=== PATIENT | female | born 1980 | race Caucasian/White ===

== ENCOUNTER 2016-08-31 10:51 | Day surgery (SDC) | payer OTHER ==
[~2016-08-31] VITALS: Ht 154.9 cm; Wt 91.0 kg
--- NOTE | 2016-08-31 10:40 | PCM.HPANE ---
Patient Data Surgeon Admitting Provider: Attending Provider:Clint Rodriguez MD Primary Care Physician:Ezra Patino DO Other Provider:Jess Arredondoingham Anesthesia Reason for Visit Family Hx Of Colon Cancer, Dysphagia Ht/WT & BMI Body Mass Index Allergies Coded Allergies: azithromycin (Verified Allergy, Unknown, 08/30/16) Diabetes History Hx Diabetes?: No Medications Reported Medications Omeprazole 20 Mg Capsule.dr20 Mg PO DAILY Ref 0 08/30/16 diphenhydrAMINE HCl (Benadryl)25 Mg [id number] Mg PO HS PRN Insomnia Ref 0 08/30/16 Acetaminophen/Diphenhydramine (Tylenol Pm Ex-Strength Caplet)500 Mg-25 Mg Tablet2 Each PO HS PRN Insomnia 08/30/16 Lorazepam (Ativan)0.5 Mg Tablet0.5 Mg PO BID PRN For Anxiety Ref 0 08/30/16 Discontinued Reported Medications Trazodone 50 Mg [id number] Mg PO HS Ref 0 08/30/16 Discontinued Scripts Lorazepam (Ativan)2 Mg Tablet2 Mg PO TID PRN For Anxiety #20 TABLET Ref 0 Prov:Edin Caballero 01/19/15 History History of ENT Problems?: No Hx of Heart Problems?: No Cardiovascular History: Denies:: Congestive Heart Failure Hypertension Hx of Respiratory Problem?: No Respiratory History: Denies:: Tuberculosis Hx Neurologic Problems?: Yes (Severe anxiety) Hx of GI Problems?: Yes Hx Surgeries?: No Hx Diabetes: No Hx Alcohol Use: NoHx Substance Use: No Smoking Status: Never Smoker Have You Smoked inLast 12 mo: No Stop/Bang S-Snoring: Do You Snore Loudly: No T-Tired: feel tired, fatigued: No O-Obsered: Observed not breath: No P-Blood Pressure: treated: No B- Body Mass Index > 35 kg/m2: Yes A- Age over 50: No N- Neck Large Circumference: No G- Gender Male: No GERARDO Risk Assessment: Low Risk, <3 Yes Risk Assessment Category Category 1A: Patient has history of documented sleep apnea, and HAS NOT received any narcotic, sedative or anesthesia administration during this stay. Category 1B: Patient has history of documented sleep apnea, and HAS received any narcotic , sedative or anesthesia administration during this stay Category 2: Patient has SUSPECTED Obstructive Sleep Apnea, and HAS received any narcotic , sedative or anesthesia administration during this stay. Category 3: Patient has SUSPECTED Obstructive Sleep Apnea and HAS NOT received narcotic, sedative or anesthesia administration during this stay. Category 4: Outpatient in Procedural Areas with known sleep apnea or who screen positive for High Risk via the STOP/BANG questionnaire. Exam Exam General Appearance: Alert, Oriented X3, Cooperative, No Acute Distress HEENT/AIRWAY: MP 2 Lungs: Clear to Auscultation, Normal Air Movement Heart: Exam Unremarkable, Regular Rate/Rhythm, No Murmurs/Rubs/Gallops Plan Impression Patient chart reviewed, patient interviewed and anesthestic plan with risks, benefits, and alternatives discussed, and informed consent obtained. ASA Physical Status: ASA2 Mod Systemic Disease Anesthetic Plan: MAC Bene/Risks/Altern/Consents: Yes HP Complete Prior to Induction: Yes Raymundo Henry MD Aug 31, 2016 10:40
[~2016-08-31 10:51] MED LIST: ACET-2605 PO; DIPH25CA6 PO; LORA-302 PO; Lactated Ringer's 1,000 ML IV ONE; OMEP20CA11 PO; TRAZ-115 PO
[2016-08-31] MEDS ORDERED: fentaNYL-PF 50 mCg/mL 2 mL Inj ONE (10:52)
[2016-08-31] MEDS ORDERED: Propofol 10,000 mCg/mL 20 mL Inj ONE (10:52)
[2016-08-31 11:20] VITALS: BP 131/91; PULSE 111; RESP 20; O2SAT 96
[2016-08-31] MEDS ORDERED: Lactated Ringer's 1,000 ML IV SCH (13:25)
[2016-08-31] MEDS ORDERED: Ondansetron 2 mg/mL 2 mL Inj IVPUSH PRN (13:25)
[2016-08-31] MEDS ORDERED: MetoCLOpramide 5 mg/mL 2 mL Inj IVPUSH PRN (13:25)
[2016-08-31 13:48] VITALS: BP 104/70; PULSE 97; RESP 14; O2SAT 98
[2016-08-31 14:00] VITALS: BP 118/73; PULSE 94; RESP 14; O2SAT 98
--- NOTE | 2016-08-31 14:00 | PCM.ANEP1 ---
Post Anesthesia Phase 1 PACU Phase 1 Assessment Vital Signs Vital Signs Date Time Temp Pulse Resp B/P Pulse Ox O2 Delivery O2 Flow Rate FiO2 08/31/16 13:48 36.2 97 14 104/70 98 Room Air 08/31/16 11:20 37.4 111 20 131/91 96 Room Air Anesthetic Administered: MAC Level of Alertness: Awake, talking AGUILAR's with Equal Strength: Yes Pain: No Nausea or Vomiting: No Oxygen Delivery: Room Air Lungs: Clear to Auscultation, Normal Air Movement Dermatome Level: Full Sensation Raymundo Henry MD Aug 31, 2016 13:59
[2016-08-31 14:05] VITALS: BP 115/70; PULSE 92; RESP 14; O2SAT 98
--- NOTE | 2016-08-31 14:18 | PCM.ANEP2 ---
Post Anesthesia Evaluation ASA/CMS Post Anesthesia VS in Patient's Normal Range?: Yes Resp Stable; Airway Patent?: Yes CV Function & Hydration Stable: Yes Mental Status Recovered?: Yes Pain control Satisfactory?: Yes N/V Control Satisfactory?: Yes Raymundo Henry MD Aug 31, 2016 14:18
--- NOTE | 2016-08-31 14:30 | ENDO ---
[address] [address] ENDOSCOPY PROCEDURE PATIENT: THAIS ARMENTA : 1980 MR#: [id number] ADMIT: 08/31/2016 JOB ID: [id number] DATE: 08/31/2016 PRIMARY PROVIDER: Ezra Patino DO (R) PROCEDURE: 1. Esophagogastroduodenoscopy with biopsies. 2. Colonoscopy with hot snare polypectomy and biopsies. INDICATIONS: A 36-year-old female with symptoms of gastroesophageal reflux and chronic diarrhea. She has a family history of colon cancer. EGD and colonoscopy are, therefore, pursued. EQUIPMENT: GIF H 180 and a PCF H 180 AL. SEDATION: Monitored anesthesia as provided by Dr. Raymundo Henry. COMPLICATIONS: None identified. BOWEL PREPARATION: Fair. PROCEDURE IN DETAIL: After the risks and benefits were explained, written and verbal informed consent was obtained. The patient was brought into the endoscopy suite and placed into the left lateral decubitus position. Sedation was achieved as above. The scope introduced into the mouth through the bite block, and advanced to the second portion of the duodenum. The scope was slowly withdrawn to carefully examine the mucosa for any defects or lesions. Retroflexed views were accomplished in the stomach. The stomach was decompressed. The scope removed from the patient who tolerated the procedure well. The patient was then turned around. A digital rectal examination accomplished. This revealed no significant separation between the vagina and rectum. In fact the patient was on her menses and rectal examination caused a moderate amount of red blood to pour out of her rectal vault. I did not appreciate any mass lesion. The scope was introduced and tended to gravitate towards the vagina. It seemed as though there was a loss of the anal sphincter mechanism that the rectum from the vagina, and once through the remnant of an anal sphincter mechanism, I could either divert the scope into the vagina or into the rectum. Once we had an understanding of the anatomy, we advanced the scope all the way to cecum as identified by the appendiceal orifice and ileocecal valve. The terminal ileum was briefly accessed. The scope then slowly withdrawn to carefully examine the mucosa for any defects or lesions. Comprehensive views were had within the rectum at the dentate line. The colon was decompressed. The scope removed from the patient who tolerated the procedure well. FINDINGS: 1. Duodenum: No significant pathology identified from the bulb through to the second portion. Based on the patient's history, random biopsies were taken from D2. 2. Stomach: The patient had a mild nonspecific gastropathy with some scattered erosive features. A biopsy was taken from a small diminutive benign appearing polyp. Retroflexed views of the LES were otherwise unremarkable. 3. Esophagus: The squamocolumnar junction correlated with the top of the gastric folds. The patient, however, did have evidence of LA grade A erosive esophagitis. A subtle sliding hiatal hernia was noted. The remainder of the esophagus appeared largely unremarkable but because the patient has had some intermittent difficulty swallowing, we took mid esophageal biopsy to exclude the possibility of eosinophilic esophagitis. 4. Terminal ileum: This appeared visually normal. 5. Colon: No evidence of macroscopic colitis or proctitis. Random colon biopsies were taken from somewhere in the transverse. I took a separate set of left colon in the sigmoid random biopsies to exclude the presence of a chronic IBD. The patient had evidence of a small, perhaps 5-6 mm sessile polyp in the sigmoid which was removed with hot snare. No other pathology throughout. ENDOSCOPIC DIAGNOSES: 1. LA grade A erosive esophagitis. 2. Subtle sliding hiatal hernia. 3. Diminutive gastric polyp. 4. Mild gastropathy. 5. Colon polyp. 6. 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 RECOMMENDATIONS: 1. Await histopathology. 2. Continue omeprazole therapy. 3. Based on the prep conditions today, I would recommend fiber supplementation. Two tablespoons ground flaxseed fiber mixed with 8 ounces of water or juice daily. 4. Repeat colonoscopy in five years. 5. Gynecology evaluation considering the unusual anatomy identified at the anorectum.
--- NOTE | 2016-09-02 12:01 | PATH ---
SURGICAL PATHOLOGY Attending Physician:Addis Velasquez CASE STATUS: Signed Out PATIENT NAME: THAIS ARMENTA PID: [id number] : 1980 DATE COLLECTED:08/31/2016 00:00 SPECIMEN: 1: Duodenum, Biopsy 2: Stomach, Polyp, Biopsy 3: Esophagus, Biopsy 4: Colon, Biopsy 5: Colon, Biopsy 6: Colon, Biopsy CLINICAL HISTORY: 1). DUODENUM BIOPSY 2). GASTRIC POLYP 3). MID ESOPHAGUS BIOPSY 4). SIGMOID COLON POLYP 5). RANDOM COLON BIOPSY 6). RANDOM SIGMOID BIOPSY FINAL DIAGNOSIS: 1. Duodenum Biopsy: Duodenal mucosa with no diagnostic alterations. Negative for inflammation, celiac, dysplasia and malignancy. 2. Gastric Polyp: Hyperplastic polyp. Negative for intestinal metaplasia. Negative for dysplasia and malignancy. 3. Mid Esophagus Biopsy: Squamous mucosa with increased eosinophils, see comment. Negative for intestinal metaplasia. Negative for dysplasia and malignancy. 4. Sigmoid Colon Polyp: Tubular adenoma. 5. Random Colon Biopsy: Colonic mucosa with no diagnostic inflammation. Negative for inflammation, dysplasia, and malignancy. 6. Random Sigmoid Biopsy: Colonic mucosa with no diagnostic alterations. Negative for inflammation, dysplasia, and malignancy. ICD10 K31.7; D12.5 NOTE: The mid-esophagus biopsy is a small fragment of squamous mucosa with focally increased eosinophils, up to 17 per high-power field. There is mild basal and capillary hyperplasia. No eosinophil microabscesses are seen. The eosinophils are distributed throughout the epithelium. The differential diagnosis of esophageal eosinophilia includes eosinophilic esophagitis, gastroesophageal reflux, drug reaction, and food allergy. Clinical and endoscopic correlation is necessary for definitive diagnosis. GROSS DESCRIPTION: The specimen is received in six formalin filled containers labeled with the patient's name. 1). The specimen is sublabeled "duodenum" and consists of 2 portions of tissue which aggregate to 0.3 x 0.2 x 0.2 CM. The specimen is entirely submitted in cassette 1A. 2). The specimen is sublabeled "gastric" and consists of a 0.1 x 0.1 x 0.1 CM portion of tissue which is entirely submitted in cassette 2A. 3). The specimen is sublabeled "midesophagus" and consists of an extremely tiny less than 0.1 CM portion of tissue which is entirely submitted in cassettes 3A. 4). The specimen is sublabeled "sigmoid colon polyp" and consists of a 0.4 x 0.4 x 0.4 CM portion of tissue which is entirely submitted in cassette 4A. 5). The specimen is sublabeled "random colon" and consists of 2 portions of tissue which aggregate to 0.5 x 0.3 x 0.2 CM. The specimen is entirely submitted in cassette 5A. 6). The specimen is sublabeled "random sigmoid" and consists of a 0.2 x 0.2 x 0.2 CM portion of tissue which is entirely submitted in cassette 6A. 09/01/2016 [facility] MICRO DESCRIPTION: Please see diagnosis. ICD-9 CODES: CPT CODES: 1: 67016 2: 07466, 66012 3: 01022 4: 56732 5: 07928 6: 04736 PROCEDURE/ADDENDA: Addendum SPI Addendum Diagnosis Part 2: An immunohistochemical stain for Helicobacter pylori was performed to evaluate for infectious organisms and is NEGATIVE. A control stain showed appropriate reactivity. * This test was developed and its performance characteristics determined by [facility]. It has not been cleared or approved by the U.S. Food and Drug Administration. The FDA has determined that such clearance or approval is not necessary. This test is used for clinical purposes. It should not be regarded as investigational or for research. Addendum Comment This addendum is issued to report the results of immunohistochemistry. Test performed at the request of Dr. Rodriguez. Electronically Signed Out Fara Warren MD Electronically Signed Out Shweta Fox MD Merged With [facility] Path[facility] [address], [place] [address] Technical component performed at [facility], [address], [place], [address]
== END 2016-08-31 23:59 | disposition home or self-care (01) ==
LOC: END 10:51
PROVIDERS: ATTEND Internal Medicine Gastroenterology
DX: D12.5 Benign neoplasm of sigmoid colon (principal); K21.9 Gastro-esophageal reflux disease without esophagitis; K31.7 Polyp of stomach and duodenum; N36.42 Intrinsic sphincter deficiency (ISD); K44.9 Diaphragmatic hernia without obstruction or gangrene; R13.10 Dysphagia, unspecified; K58.9 Irritable bowel syndrome, unspecified; F41.9 Anxiety disorder, unspecified; F32.9 Major depressive disorder, single episode, unspecified; G93.5 Compression of brain; Z80.0 Family history of malignant neoplasm of digestive organs
CPT/HCPCS: 43239; 45380; 45385; 88305; J2250; J3010; J7120

== ENCOUNTER 2016-10-31 01:32 | Emergency (ER) | payer OTHER ==
[~2016-10-31] VITALS: Ht 154.9 cm; Wt 94.5 kg
[~2016-10-31 01:32] MED LIST changes: -Lactated Ringer's 1,000 ML IV ONE; -TRAZ-115 PO
--- NOTE | 2016-10-31 01:33 | ED.REPORT ---
HPI-General Illness Date of Service Oct 31, 2016 ED Provider: Dr. Olman Vernon MD Patient is a 36 year old female with a history of anxiety who presents to the ED via EMS with worsening anxiety that began this afternoon. 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 She reports a long day of activity prior to symptom onset. Associated symptoms also include heart palpations, diaphoresis, nausea, shaking and a near syncopal episode. Patient experienced identical symptoms during her previous panic attacks. EMS gave the patient Zofran en route. She denies any abdominal pain. Nursing Notes Stated Complaint: RAPID HEART RATE Nursing Notes Reviewed: Yes Allergies: Coded Allergies: azithromycin (Verified Allergy, Unknown, 10/31/16) Scheduled Omeprazole (Omeprazole) 20 Mg Capsule.dr 20 MG PO DAILY Scheduled PRN Acetaminophen/Diphenhydramine (Tylenol Pm Ex-Strength Caplet) 500 Mg-25 Mg Tablet 2 EACH PO HS PRN PRN Insomnia Lorazepam (Ativan) 0.5 Mg Tablet 0.5 MG PO BID PRN PRN For Anxiety diphenhydrAMINE HCl (Benadryl) 25 Mg Capsule 50 MG PO HS PRN PRN Insomnia General Time Seen by : 01:32 Chief Complaint Other (Anxiety ) Hx Obtained From: Patient Arrived By: Ambulance Sudden in Onset?: Yes Onset Occurred: 1 - 4 hours ago Symptom Duration: Since onset Associated with: Reports: Diaphoresis Additional Notes: Shaking Pertinent Negative: Pt denies other symptoms Recent Healthcare: No recent doctor visit, No recent hospitalization Past Medical History Past Medical History Seasonal allergies Anxiety Past Surgical History Reports: , Cholecystectomy Family History Father has post nasal drip and arthritis Mother has cancer Smoking History Never Smoker Social History Alcohol Use: Denies alcohol use Drug Use: Denies drug use Other Social History: , Lives with children Ambulatory Status Independent Review of Systems Full Review of Systems Cardiovascular: Reports: Palpitations GI: Reports: Nausea, Denies: Abdominal pain Skin: Reports Diaphoresis Neurologic: Reports: Shaking, Denies: Syncope Psychiatric: Reports: Anxiety, Stress Complete sys rev & neg: except as marked. Physical Exam Vital Signs Vital Signs Date Time Temp Pulse Resp B/P Pulse Ox O2 Delivery O2 Flow Rate FiO2 10/31/16 02:54 92 23 106/67 97 Room Air 10/31/16 01:51 36.7 102 12 124/70 95 Room Air Initial VS: Reviewed Neck: Supple, Non-tender, Full range of motion Extremities: Vascular intact, Neuro intact, No swelling, No tenderness Skin: Warm, Dry, No cyanosis Neurologic: Alert, Oriented, Nonfocal General/Constitutional: Awake, Alert Behavior: Positive: Anxious Head / Eyes: Atraumatic, Normocephalic Respiratory / Chest: Atraumatic, Breath sounds NL, Breath sounds = bilat, No respiratory distress Cardiovascular: Heart rate NL, Regular rhythm, Heart sounds NL, Peripheral circulation NL, Pulses = bilaterally Abdomen: Atraumatic, Soft, Non-tender Re-Eval/Medical Decision Med Decision/Clinical Course 36-year-old with history of anxiety and panic attack presents with typical symptoms. These were made worse because she was isolated in a Brown up at [facility]. Once she was in the care of the ambulance and being transported her symptoms abated and she currently has very minimal symptoms. She is being discharged home with her . She will follow-up with her primary doctor as needed for any persistent symptoms. Time of Eval: 02:21 Re-Evaluation/Progress Note: Her anxiety has improved and she is currently complaining of she is agreeable to discharge at this time All questions are addressed. She understands and agrees with the treatment plan. Counseled Regarding: Diagnosis, Lab results, Need for follow-up, When/why to return to ED Discharge & Departure Primary Impression: Panic attack Disposition: Home Discharge Condition All VS Reviewed: Yes Condition: Improved Patient Instructions: Anxiety (ED) Additional Instructions: I agree with you that your symptoms were likely due to panic/anxiety. Go home and get a good night sleep. Follow-up with your regular doctor as needed for any persistent symptoms. I do not think you need any further workup tonight. Call me at [phone] between 9 PM and 6 AM for the next couple nights if you have any questions or concerns. Referrals: Ezra Patino DO (PCP) [place] Attestation Portions of this note were transcribed by Dorothy Dias. I, Dr. Vernon personally performed the history, physical exam and medical decision-making; I reviewed and confirmed the accuracy of the information in the transcribed note. Signed by: Tk Hilton, 10/31/16 [id number]. copies to: Ezra Patino Howard L MD Oct 31, 2016 01:33 DOROTHY DIAS Oct 31, 2016 01:40
[2016-10-31 01:51] VITALS: BP 124/70; PULSE 102; RESP 12; O2SAT 95
[2016-10-31 02:54] VITALS: BP 106/67; PULSE 92; RESP 23; O2SAT 97
== END 2016-10-31 02:55 | disposition home or self-care (01) ==
LOC: SED 01:32
DX: F41.0 Panic disorder [episodic paroxysmal anxiety] (principal); Z88.1 Allergy status to other antibiotic agents; Z79.899 Other long term (current) drug therapy

== ENCOUNTER 2017-02-08 17:04 | Emergency (ER) | payer OTHER ==
[~2017-02-08] VITALS: Ht 154.9 cm; Wt 93.6 kg
[2017-02-08 17:16] VITALS: BP 152/88; PULSE 104; RESP 18; O2SAT 96
[2017-02-08 18:07] LABS: BASOPHILS % (AUTO) 0.2 % (0-3); EOSINOPHILS % (AUTO) 0.9 % (0-5); MONOCYTES % (AUTO) 5.9 % (4-12); NEUTROPHILS % (AUTO) 63.8 % (40-74); Platelet Count 323 bil/L (150-400)
[2017-02-08 18:29] LABS: TROPONIN T < 0.010 ug/L (0.0-0.011)
--- NOTE | 2017-02-08 18:36 | DRSVH ---
PROCEDURE: X-RAY CHEST ONE VIEW, PORTABLE ([id number]) INDICATIONS: pain CHEST TECHNIQUE: One view of the chest was acquired. COMPARISON: None. FINDINGS: Surgical changes and devices: None. Lungs and pleura: No pleural effusions or pneumothorax. Lungs are clear. Mediastinum: Mediastinal contours appear normal. Heart size is normal. Bones and chest wall: No suspicious bony lesions. Overlying soft tissues appear unremarkable. IMPRESSION: No acute cardiopulmonary findings. Dictated by: Lauren Estrada M.D. on 02/08/2017 at 18:34 Approved by: Lauren Estrada M.D. on 02/08/2017 at 18:34
[2017-02-08 18:40] LABS: Lipase 38 U/L (13-60); Magnesium 1.8 mg/dL (1.6-2.6)
[2017-02-08 19:35] LABS: APPEARANCE,URINE CLEAR (CLEAR,HAZY); COLOR,URINE YELLOW (YELLOW); OCCULT BLOOD,URINE SMALL (NEGATIVE); UROBILINOGEN,URINE NORMAL (NORMAL)
--- NOTE | 2017-02-08 19:54 | ED.REPORT ---
HPI-Abd Pain F Under 40 Date of Service Feb 08, 2017 ED Provider: Raymundo Ahn MD The patient is a 36 year old female with a hx of acute pancreatitis, cholecystectomy, and Crohn's disease in which she is taking steroids for presenting to the ED complaining of LUQ abdominal pain onset last night with the most recent spur in pain being this morning at 0300. The patient describes her pain as constant, a 7/10 severity, and claims that the pain has spread to the left side of her back. She says that she has taken Ibuprofen and Motrin today to no relief. She admits to headache, dizziness, difficulty sleeping. She denies fever, and nausea. She claims that when she got blood drawn she felt diaphoretic and that is unusual for her. Nursing Notes Stated Complaint: CHECK FOR HEART ATTACK & PANCREATITIS Chief Complaint: Female Abdominal Pain Nursing Notes Reviewed: Yes ([employer] not reconciled) Allergies: Coded Allergies: azithromycin (Verified Allergy, Unknown, 02/08/17) egg (Verified Allergy, Unknown, 02/08/17) Uncoded Allergies: MACADAMIA NUTS (Allergy, Unknown, 02/08/17) Scheduled Omeprazole (Omeprazole) 20 Mg Capsule.dr 20 MG PO DAILY Scheduled PRN Acetaminophen/Diphenhydramine (Tylenol Pm Ex-Strength Caplet) 500 Mg-25 Mg Tablet 2 EACH PO HS PRN PRN Insomnia Lorazepam (Ativan) 0.5 Mg Tablet 0.5 MG PO BID PRN PRN For Anxiety diphenhydrAMINE HCl (Benadryl) 25 Mg Capsule 50 MG PO HS PRN PRN Insomnia oxyCODONE-Acetaminophen 5-325 mg (oxyCODONE-Acetaminophen 5-325 mg) 1 Each Tablet 0.5-1 TAB PO Q6H PRN PRN For Pain General Time Seen by MD: 19:49 Chief Complaint Abdominal pain Hx Obtained From: Patient Arrived By: Walk-in Sudden in Onset?: Yes Onset Occurred: Yesterday Symptom Duration: Constant Progression since Onset: Constant Location: : LUQ Radiation: : Flank left Severity: Current: Pain level 7 out of 10 Severity: Maximum: Pain level 7 out of 10 Associated with: Denies: Fever, Nausea Pertinent Negative: Pt denies other symptoms Recent Healthcare: Recent doctor visit, Recent testing Similar Sx Previous: No Past Medical History Past Medical History Crohn's (diagonosed by capsule endoscopy by GI summer 2016, GI Dr. Rodriguez) Seasonal allergies Anxiety Past Surgical History Endoscopy, Colonoscopy, capsule endoscopy by Dr. Rodriguez 2016 Reports: , Cholecystectomy Family History Father has post nasal drip and arthritis Mother has cancer Smoking History Never Smoker Social History Alcohol Use: Denies alcohol use Drug Use: Denies drug use Other Social History: , Lives with children Ambulatory Status Independent Review of Systems Difficulty sleeping Constitutional: Denies: Fever GI: Reports: Abdominal pain (LUQ), Denies: Nausea Musculoskeletal: Reports: Back pain (left flank) Complete sys rev & neg: except as marked. Neurologic: Reports: Dizziness, Headache Physical Exam Initial Vital Signs Vital Signs (First) Date Time Temp Pulse Resp B/P Pulse Ox O2 Delivery O2 Flow Rate FiO2 02/08/17 17:16 36.9 104 18 152/88 96 Room Air Initial VS: Reviewed, Vital signs normal Head / Eyes: Atraumatic, Normocephalic, PERRL ENT: Mucous membranes moist, Conjunctiva normal, No scleral icterus Neck: Supple, Non-tender, Full range of motion Lymphatic: No lymphadenopathy Extremities: Vascular intact, Neuro intact, No swelling, No tenderness Skin: Warm, Dry, No cyanosis Neurologic: Alert, Oriented, Nonfocal Psychiatric: Mood/affect normal, Behavior normal, Normal thought content General/Constitutional: Awake, Alert, No acute distress, Well appearing Respiratory / Chest: Breath sounds NL, Breath sounds = bilat, No respiratory distress, No rales, No rhonchi, No wheezing Cardiovascular: Heart rate NL, Regular rhythm, Heart sounds NL, Peripheral circulation NL Abdomen: Soft, Non-tender, McBurney's non-tender, No guarding, No rebound, BS normoactive, No distention, No hernia, No palpable mass Back: Inspection NL, Non-tender, No CVA tenderness Interpretation & Diagnostics Lab Results Interpretation Result Diagram: 02/08/17 1802 02/08/17 1802 Test 02/08/17 18:02 02/08/17 18:03 02/08/17 19:24 White Blood Count 8.9th/mm3 (3.8-10.1) Red Blood Count 4.69mil/mm3 (3.90-5.20) Hemoglobin 13.6g/dL (12.0-15.6) Hematocrit 39.4% (35.0-46.0) Mean Corpuscular Volume 84.0fL (81-100) Mean Corpuscular Hemoglobin 29.0pg (27.0-35.0) Mean Corpuscular Hemoglobin Concent 34.5% (32.0-37.0) Red Cell Distribution Width 12.8% (12.3-15.4) Platelet Count 323bil/L (150-400) Neutrophils (%) (Auto) 63.8% (40-74) Lymphocytes (%) (Auto) 29.0% (14-46) Monocytes (%) (Auto) 5.9% (4-12) Eosinophils (%) (Auto) 0.9% (0-5) Basophils (%) (Auto) 0.2% (0-3) Sodium Level 140mEq/L (134-144) Potassium Level 3.6mEq/L (3.5-5.2) Chloride Level 102mEq/L (97-108) Carbon Dioxide Level 22mmol/L (18-29) Blood Urea Nitrogen 8mg/dL (6-20) Creatinine 0.63mg/dL (0.57-1.00) Estimat Glomerular Filtration Rate 152mL/min (>59) Glucose Level 124mg/dL (60-99) Calcium Level 9.0mg/dL (8.5-10.1) Magnesium Level 1.8mg/dL (1.6-2.6) Total Bilirubin 0.6mg/dL (0.0-1.2) Aspartate Amino Transf (AST/SGOT) 20U/L (0-50) Alanine Aminotransferase (ALT/SGPT) 21U/L (0-32) Alkaline Phosphatase 64U/L (25-150) Troponin T < 0.010ug/L (0.0-0.011) Total Protein 7.1g/dL (6.4-8.4) Albumin 4.2g/dL (3.4-5.0) Lipase 38U/L (13-60) Hold Bruno Top Tube Received (Received) Urine Color Yellow (YELLOW) Urine Appearance Clear (CLEAR,HAZY) Urine pH 6.0 (5.0-8.0) Urine Specific [place] 1.025 (1.003-1.035) Urine Protein Negativemg/dL (NEG,TRACE) Urine Glucose (UA) Negativemg/dL (NEGATIVE) Urine Ketones Negativemg/dL (NEGATIVE) Urine Occult Blood Small (NEGATIVE) Urine Nitrite Negative (NEGATIVE) Urine Bilirubin Negative (NEGATIVE) Urine Urobilinogen Normalmg/dL (NORMAL) Urine Leukocyte Esterase Negative (NEGATIVE) Urine RBC 3-10/hpf (0-2) Urine WBC 0-5/hpf (0-5) Urine Epithelial Cells Moderate/hpf (NONE-MOD) Urine Crystals None seen (NONE SEEN) Urine Bacteria Few/hpf (NONE-FEW) Urine Hyaline Casts None/lpf (NONE) Urine Granular Casts None seen (NONE SEEN) Urine Waxy Casts None seen (NONE SEEN) Urine Red Blood Cell Casts None seen (NONE SEEN) Urine White Blood Cell Casts None seen (NONE SEEN) Urine Mucus Present (None Seen) Urine Trichomonas None seen (NONE SEEN) Urine Yeast None (NONE SEEN) Urinalysis Comment None Urine Culture Reflexed Not indicated ECG Interpretation Time: 18:08 Interpreted by: ED physician Normal ECG Interpretation: Normal ECG w/ rate of... (87), Normal rate, Normal sinus rhythm X-Ray Chest Interpretation Chest Xray Interpretation: IMPRESSION: No acute cardiopulmonary findings. Dictated by: Lauren Estrada M.D. on 02/08/2017 at 18:34 Approved by: Lauren Estrada M.D. on 02/08/2017 at 18:34 Interpretation / Wet Read by: Interpret - Radiologist Re-Eval/Medical Decision Med Decision/Clinical Course This is a 36-year-old female presents requesting to be examined for abdominal pain. This patient was recently diagnosed with Crohn's disease, reports she has had some chronic left-sided pain and is on steroid therapy, starting these past 2 days since an increased left upper quadrant pain. She has had no fever, nausea vomiting was not sure what to make of this. She talked to the GI office who recommended she come in to be checked out-she has had a previous episode of pancreatitis as well by report. Clinically appears well and is in no distress. Abdomen soft and nontender pressure we tender-she has no guarding or rebounds or clinical signs of a surgical abdomen or akilah peritonitis. Laboratory studies are normal with no leukocytosis, normal liver function tests and lipase. Clinically overt or dangerous cause of her symptoms is not identified. She appears much better and requests simply a single dose of some oral pain medicines. My suspicion of a need for CT is low, I reviewed the options of pursuing further testing versus clinically following the next few days and some conservative treatment, the patient agrees that she prefers to try conservative treatment, try think is the most appropriate course. Plans were to continue her budesonide, a few doses of pain medicine provided. Careful routine return precautions including return immediately should developing worsening pain fever , or other concerning symptoms. Source of Hx: Old records Re-Evaluation/Progress : Time of Eval: 20:13 )( Re-Eval Abdomen: Soft, Non-tender, No guarding, No rebound Re-Evaluation/Progress Note: Patient rechecked. Discussed lab results and plan to discharge. Patient understands and agrees with plan. All questions addressed at this time. Differential Diagnosis: Positive: Acute abdominal pain, Negative: Bladder outlet obstruct, C. diff colitis, Cervicitis, Cholangitis, Cholecystitis, Cholelithiasis, Contusion abdominal wall, Ectopic preg ruptured, Ectopic , Gun shot wound abdomen, Pancreatitis, Peritonitis, Trauma, abdominal Counseled Regarding: Diagnosis, Lab results, Need for follow-up, When/why to return to ED Discharge & Departure Primary Impression: Abdominal pain Abdominal location: left upper quadrant Qualified Code: R10.12 - Left upper quadrant pain Disposition: Home Discharge Condition All VS Reviewed: Yes Condition: Improved Additional Instructions: 1. A dangerous cause of the abdominal pain was not identified. Your blood tests , including tests for your pancreas and heart-were normal. 2. I do not find signs on her physical exam or laboratory tests recommended additional testing such as a CT scan at this time, however if you develop new or worsening symptoms, particularly if you develop increasing pain or fever, he needs to return and be reevaluated. 3. Continue your current medications. 4. Go ahead and take ibuprofen up to every 6 hours if needed for pain. 5. The next day or 2 you can take oxycodone/APAP 5/325 1/2-1 tab up to every 4- 6 hours. Note: This medication contains narcotic and causes drowsiness, no driving for at least 4-6 hours after taking. Referrals: Consuelo Mandujano DO (PCP) Clint Rodriguez MD Scribe Attestation Portions of this note were transcribed by Erika Baron and Manuel Reyes. I, Dr. Ahn personally performed the history, physical exam and medical decision -making; I reviewed and confirmed the accuracy of the information in the transcribed note. Signed by: Tk Hutchison, 02/08/2017 copies to: Consuelo Mandujano DO; Clint Rodriguez MD, Matthew F MD Feb 08, 2017 19:54 Feb 08, 2017 20:18 ERIKA BARON Feb 08, 2017 20:41
[2017-02-08] MEDS ORDERED: oxyCODONE-Acetamin 5-325 mg Tablet PO ONE (20:20)
[2017-02-08] MEDS ORDERED: OXYC1TAB24 PO (20:29)
[2017-02-08] MEDS ORDERED: _oxyCODONE/APAP 5-325 mg Tablet PO PRN (20:35)
[2017-02-08 20:38] VITALS: BP 121/84; PULSE 90; RESP 16; O2SAT 98
[2017-02-08 21:15] VITALS: BP 121/84; PULSE 90; RESP 16; O2SAT 98
== END 2017-02-08 21:16 | disposition home or self-care (01) ==
LOC: SED 17:04
DX: R10.12 Left upper quadrant pain (principal); R51 Headache; R42 Dizziness and giddiness; R61 Generalized hyperhidrosis; K50.90 Crohn's disease, unspecified, without complications; F41.8 Other specified anxiety disorders; Z90.49 Acquired absence of other specified parts of digestive tract; Z98.890 Other specified postprocedural states; Z88.1 Allergy status to other antibiotic agents; Z91.012 Allergy to eggs